=== PATIENT | female | born 1990 | race Caucasian/White ===

== ENCOUNTER 2016-11-12 17:05 | Emergency (ER) | payer OTHER ==
[2016-11-12 17:10] VITALS: BP 131/90; PULSE 87; RESP 16; TEMP 98.2; O2SAT 99
--- NOTE | 2016-11-12 17:38 | EDPHY ---
General - History Smoking Status: Current some day smoker Narrative: CHIEF COMPLAINT: Possible blood borne exposure HISTORY OF PRESENT ILLNESS: Patient complains of coming contact with dry blood on the hands of an unknown person that she reports is homeless. This happen yesterday around 5:00 p.m.. She was headache film festival when someone near her fell down. She went to help him up and grabbed his hands. When she did so she noticed that he had REVIEW OF SYSTEMS: Ten systems reviewed and are negative unless otherwise noted in the HPI PCP: None locally. Primary care physician is in [place] SPECIALISTS: None PAST MEDICAL HISTORY: None PAST SURGICAL HISTORY: No general surgical history. Does have a left brachial Nexplanon implant SOCIAL HISTORY: Currently trying to quit smoking. Occasional alcohol. No illicit substance use. FAMILY HISTORY: Noncontributory EXAMINATION General Appearance: Alert, no distress Head: normocephalic, atraumatic Eyes: Pupils equal and round, no conjunctival pallor or injection ENT, Mouth: Mucous membranes moist. Airway patent Neck: Normal inspection, supple, non-tender Respiratory: Lungs are clear to auscultation no wheezing, rhonchi or crackles Cardiovascular: Regular rate and rhythm. No murmur Gastrointestinal: Abdomen is soft and nontender Back: non-tender, no bony abnormalities Neurological: A&O, nonfocal, normal gait Skin: Warm and dry, no rash. There is a very small, 2 mm scab to the dorsum of the left hand. No bleeding. No signs of infection. Extremities: Nontender, no pedal edema Psychiatric: Mood and affect normal DIFFERENTIAL DIAGNOSES: Including but not limited to blood borne exposure, normal examination MDM: 5:25 p.m. Possible exposure to dried blood from a unknown homeless person yesterday. Patient does have a small scab on the left hand with no active bleeding. No information obtainable from the person she came in contact with. The patient has no history of communicable diseases, infectious disease, IV drug abuse. She is here requesting recommendation on how to proceed. As this is a very morales area of possible exposure, I will consult Dr. Lebron and infectious disease physician. 5:32 p.m. Case discussed with infectious disease physician Dr. Oropeza. He informed me that the patient has no need to be concerned. He does not recommend laboratory testing or any post exposure prophylaxis. I have informed the patient of this. She is reassured. She will be discharged home stable condition. I have answered all her questions. (Kwasi Michelle) Discussion: The patient was evaluated and managed by the Physician Orientor/ Nurse Practitioner. I discussed the patient's presentation and course with the midlevel provider with them and agree with the evaluation. My co-signature indicates that I have reviewed this chart and I agree with the findings and plan of care as documented. I am the secondary supervising physician. (Maggie Lebron) - Objective Vital Signs: Initial Vital Signs Temperature (C) 36.8 C 11/12/16 17:07 Heart Rate 87 11/12/16 17:07 Respiratory Rate 16 11/12/16 17:07 Blood Pressure 131/90 H 11/12/16 17:07 O2 Sat (%) 99 11/12/16 17:07 O2 Delivery Mode Room Air Allergies/Adverse Reactions: No Known Allergies Allergy (Unverified 11/12/16 17:07) Home Medications: Medication Instructions Recorded Nexplanon 11/12/16 Departure - Departure Disposition: Home, Routine, Self-Care Clinical Impression: Normal exam Condition: Good Instructions: Postexposure Prophylaxis (ED) Additional Instructions: 1. Follow up with primary care physician Referrals: RITESH CADENA [Other] - As per Instructions [facility] ([facility],. [Edm Groups for Call Sched] - As per Instructions
== END 2016-11-12 18:20 | disposition home or self-care (01) ==
DX: Z00.00 Encounter for general adult medical examination without abnormal findings (principal); F17.200 Nicotine dependence, unspecified, uncomplicated